=== PATIENT | female | born 1965 | race Caucasian/White ===

== ENCOUNTER → 2016-04-12 | Outpatient (CLI) | payer OTHER ==
[~2016-04-12] MED LIST: ATIVAN0.5 MG PO; CIPRO500 MG PO; CREON DR 12,001 EAC1 PO; ESTRACE42.5 GM TP; ESTRACE42.5 GM VG; ESTRADIOL0.5 MG PO; FIORICET,ESG1 TABLET PO; IMODIUM MS REL1 EACH PO; KLOR-CON M2020 MEQ PO; LOMOTIL TABLET1 EACH PO; LOPRESSOR25 MG PO; MAGIC MOUTHWASH1 ML MM; METOPROLOL TART25 MG PO; NORCO 5/3251 TABLET PO; OXAYDO5 MG PO; OXYCODONE HCL10 MG PO; PANTOPRAZOLE SO40 MG PO; PERCOCET 5/31 TABLET PO; PRILOSEC20 MG PO; PROGESTERONE CREAM TP; PROGESTERONE100 MG PO; PROMETHAZINE HC25 M1 PO; REGLAN10 MG PO; XELODA500 MG PO; ZOFRAN4 MG PO; ZOFRAN8 MG PO
== END | disposition home or self-care (01) ==
LOC: RAD 07:48 → EDSTATUS 08:15 → RAD 08:15
PROC: 0W9G3ZZ Drainage of Peritoneal Cavity, Percutaneous Approach (ICD-10-PCS; principal; 2016-04-12)
DX: R18.0 Malignant ascites (principal); C16.9 Malignant neoplasm of stomach, unspecified

== ENCOUNTER → 2016-04-14 | Outpatient (CLI) | payer OTHER ==
[~2016-04-14] VITALS: Ht 149.9 cm; Wt 46.4 kg
== END | disposition home or self-care (01) ==
LOC: RAD 15:54 → EDSTATUS 16:00 → RAD 16:00
PROC: 0W9B3ZZ Drainage of Left Pleural Cavity, Percutaneous Approach (ICD-10-PCS; principal; 2016-04-14)
DX: J90 Pleural effusion, not elsewhere classified (principal)
CPT/HCPCS: 88108; 88305

== ENCOUNTER → 2016-05-01 | Outpatient (CLI) | payer OTHER | END | disposition home or self-care (01) | LOC: RAD 08:35 → EDSTATUS 09:00 → RAD 09:00 | PROC: 0W9B3ZZ Drainage of Left Pleural Cavity, Percutaneous Approach (ICD-10-PCS; principal; 2016-05-01) | DX: J90 Pleural effusion, not elsewhere classified (principal); C16.9 Malignant neoplasm of stomach, unspecified; R18.0 Malignant ascites ==

== ENCOUNTER 2016-05-08 17:05 | Emergency (ER) | payer OTHER ==
[~2016-05-08] VITALS: Ht 149.9 cm; Wt 46.3 kg
[2016-05-08 18:40] LABS: HEMATOCRIT 34.1 % (36.0-46.0); MCH 31.4 PG (29.0-34.0); MCHC 31.1 G/DL (30.0-36.0); MCV 100.9 FL (83-99); MEAN PLAT.VOLUME 9.8 uM^3 (9.5-12.4); RBC DIS.WIDTH-CV 13.9 % (11.8-14.6); RBC DIS.WIDTH-SD 49.8 % (39-53); RED BLOOD COUNT 3.38 M/uL (3.80-5.20)
[2016-05-08 18:42] LABS: PLATELET COUNT 322 K/uL (156-360); WHITE BLOOD COUNT 8.2 K/uL (4.1-10.2)
[2016-05-08 18:51] LABS: CHLORIDE 109 mEq/L (99-109); POTASSIUM 4.1 mEq/L (3.7-5.4); SODIUM 145 mEq/L (136-147)
[2016-05-08 18:54] LABS: GLUCOSE 82 mg/dL (70-99)
[2016-05-08 18:55] LABS: ANION GAP 11 MEQ/L (2-14)
[2016-05-08 18:57] LABS: ALKALINE PHOSPHATASE 139 IU/L (3-129); GFR ESTIMATE (CALCULATED) > 59 mL/min/
[2016-05-08 18:58] LABS: UREA NITROGEN (BUN) 25 mg/dL (9-23)
[2016-05-08 19:13] LABS: PROTHROMBIN TIME 10.5 (9.2-11.2); PTT 25.9 (25-32)
[2016-05-08 19:16] LABS: TOTAL BILIRUBIN 0.4 mg/dL (0.0-1.0)
[2016-05-08 21:24] VITALS: BP 102/61
== END 2016-05-08 21:26 | disposition home or self-care (01) ==
LOC: EME 17:05
PROVIDERS: Physician Assistant
DX: J90 Pleural effusion, not elsewhere classified (principal); R18.0 Malignant ascites; C16.9 Malignant neoplasm of stomach, unspecified; I10 Essential (primary) hypertension
CPT/HCPCS: 71020; 76705; 80053; 85027; 85610; 85730; 99281; 99284

== ENCOUNTER → 2016-05-10 | Outpatient (CLI) | payer OTHER | END | disposition home or self-care (01) | LOC: RAD 05-03 13:30 → EDSTATUS 13:30 → RAD 13:30 | DX: R18.8 Other ascites (principal); J90 Pleural effusion, not elsewhere classified; C16.9 Malignant neoplasm of stomach, unspecified ==

== ENCOUNTER → 2016-05-18 | Outpatient (CLI) | payer OTHER ==
[~2016-05-18] MED LIST changes: +PROBIOTIC1 EAC1 PO; +TUMS500 MG PO
== END | disposition home or self-care (01) ==
LOC: OPR 12:49 → EDSTATUS 13:00 → RAD 14:00 → OPR 14:00
PROC: 0W9B3ZZ Drainage of Left Pleural Cavity, Percutaneous Approach (ICD-10-PCS; principal; 2016-05-18)
PROC: 02HV33Z Insertion of Infusion Device into Superior Vena Cava, Percutaneous Approach (ICD-10-PCS; 2016-05-18)
DX: J90 Pleural effusion, not elsewhere classified (principal)
CPT/HCPCS: 71010; C1729; J3010

== ENCOUNTER → 2016-05-24 | Outpatient (CLI) | payer OTHER | END | disposition home or self-care (01) | LOC: RAD 05-12 08:15 | PROC: BD47ZZZ Ultrasonography of Gastrointestinal Tract (ICD-10-PCS; principal; 2016-05-24) | DX: R18.8 Other ascites (principal); C16.9 Malignant neoplasm of stomach, unspecified; Z53.09 Procedure and treatment not carried out because of other contraindication | CPT/HCPCS: 76705 ==

== ENCOUNTER → 2016-05-30 | Outpatient (CLI) | payer OTHER | END | disposition home or self-care (01) | LOC: RAD 07:49 | PROC: 0W9G3ZZ Drainage of Peritoneal Cavity, Percutaneous Approach (ICD-10-PCS; principal; 2016-05-30) | DX: R18.8 Other ascites (principal) ==

== ENCOUNTER 2016-06-04 15:30 | Observation (INO) | payer OTHER ==
[~2016-06-04] VITALS: Ht 147.3 cm; Wt 46.4 kg
[2016-06-04 17:18] LABS: ADD MIUA? YES; BILIRUBIN NEGATIVE; BLOOD NEGATIVE; COLOR YELLOW ((YELLOW)); GLUCOSE (STRIP) NEGATIVE; KETONES 5; LEUKOCYTES TRACE; NITRITE NEGATIVE; PROTEIN (STRIP) NEGATIVE; SPECIFIC GRAVITY 1.021 (1.000-1.030); UROBILINOGEN 0.2 MG/DL (0.2-1.0)
[2016-06-04 17:50] LABS: INFLUENZA A VIRAL ANTIGEN NEGATIVE; INFLUENZA B VIRAL ANTIGEN NEGATIVE
[2016-06-04 17:52] LABS: BACTERIA NONE SEEN /HPF; CALCIUM OXALATE CRYSTALS 4+ /HPF; EPITHELIAL CELLS RARE /HPF; HYALINE CASTS 0-5 /LPF; MUCUS 2+ /LPF
[2016-06-04 18:31] LABS: HEMATOCRIT 32.4 % (36.0-46.0); MCH 30.4 PG (29.0-34.0); MCHC 31.8 G/DL (30.0-36.0); MEAN PLAT.VOLUME 9.5 uM^3 (9.5-12.4); PLATELET COUNT 277 K/uL (156-360); RBC DIS.WIDTH-CV 12.4 % (11.8-14.6); RBC DIS.WIDTH-SD 41.7 % (39-53); RED BLOOD COUNT 3.39 M/uL (3.80-5.20); WHITE BLOOD COUNT 8.7 K/uL (4.1-10.2)
[2016-06-04 18:33] LABS: D-DIMER ELISA 1.88 mg/L FEU (< 0.57)
[2016-06-04 18:39] LABS: CHLORIDE 106 mEq/L (99-109); POTASSIUM 4.1 mEq/L (3.7-5.4); SODIUM 139 mEq/L (136-147)
[2016-06-04 18:42] LABS: GLUCOSE 296 mg/dL (70-99)
[2016-06-04 18:43] LABS: ANION GAP 9 MEQ/L (2-14)
[2016-06-04 18:44] LABS: TOTAL BILIRUBIN 0.1 mg/dL (0.0-1.0)
[2016-06-04 18:45] LABS: ALKALINE PHOSPHATASE 295 IU/L (3-129); GFR ESTIMATE (CALCULATED) > 59 mL/min/
[2016-06-04 18:46] LABS: MCV 95.6 FL (83-99); UREA NITROGEN (BUN) 22 mg/dL (9-23)
[2016-06-04 19:54] LABS: TROP-I INTERPRETATION NEGATIVE; TROPONIN-I < 0.01 ng/mL (0.0-0.30)
[2016-06-04] MEDS ORDERED: ROXICODONE5 MG PO (21:43)
[2016-06-04] MEDS ORDERED: EMERGEN-C 1,01000 MG PO (21:44)
[2016-06-05 02:24] VITALS: BP 123/77
[2016-06-05 07:34] LABS: TROP-I INTERPRETATION NEGATIVE; TROPONIN-I < 0.01 ng/mL (0.0-0.30)
[2016-06-05 14:05] VITALS: BP 111/21
[2016-06-05 17:05] VITALS: BP 111/71
[2016-06-05 17:20] VITALS: BP 126/88
[2016-06-05 17:44] LABS: TROP-I INTERPRETATION NEGATIVE; TROPONIN-I < 0.01 ng/mL (0.0-0.30)
[2016-06-05 19:48] VITALS: BP 101/73
[2016-06-05 22:37] LABS: ADD MIUA? YES; BILIRUBIN NEGATIVE; BLOOD SMALL; COLOR YELLOW ((YELLOW)); GLUCOSE (STRIP) NEGATIVE; KETONES NEGATIVE; LEUKOCYTES SMALL; NITRITE NEGATIVE; PROTEIN (STRIP) NEGATIVE; SPECIFIC GRAVITY 1.023 (1.000-1.030); UROBILINOGEN 0.2 MG/DL (0.2-1.0)
[2016-06-05 22:47] LABS: BACTERIA RARE /HPF; EPITHELIAL CELLS 1+ /HPF; MUCUS 2+ /LPF; RED BLOOD CELLS 30-40 /HPF (0-5); UCUL ADDED? NO; WHITE BLOOD CELLS 20-30 /HPF (0-5)
[2016-06-05 23:41] VITALS: BP 96/57
[2016-06-06 04:32] VITALS: BP 103/69
[2016-06-06 06:52] LABS: HEMATOCRIT 30.7 % (36.0-46.0); MCH 30.3 PG (29.0-34.0); MCHC 31.6 G/DL (30.0-36.0); MCV 95.9 FL (83-99); MEAN PLAT.VOLUME 9.6 uM^3 (9.5-12.4); PLATELET COUNT 254 K/uL (156-360); RBC DIS.WIDTH-CV 12.7 % (11.8-14.6); RBC DIS.WIDTH-SD 44.6 % (39-53); WHITE BLOOD COUNT 6.9 K/uL (4.1-10.2)
[2016-06-06 07:18] LABS: ANION GAP 7 MEQ/L (2-14); CHLORIDE 106 MEQ/L (99-109); GFR ESTIMATE (CALCULATED) > 59 mL/min/; SAMPLE HEMOLYSIS CHECK 0; SAMPLE ICTERIC CHECK 0; SAMPLE LIPEMIA CHECK 0; SODIUM 142 MEQ/L (136-147); UREA NITROGEN (BUN) 22 mg/dL (9-23)
[2016-06-06 07:22] LABS: GLUCOSE 82 mg/dL (70-99)
[2016-06-06 07:42] VITALS: BP 116/74
[2016-06-06 11:21] VITALS: BP 114/72
[2016-06-06 15:51] VITALS: BP 109/76
[2016-06-06] MEDS ORDERED: VENTOLIN HFA18 GM IH (17:24)
== END 2016-06-06 18:43 | disposition home or self-care (01) ==
LOC: EME 15:30 → EDOF 06-05 00:25 → 5SOUTH 06-05 00:25
PROVIDERS: Hospitalist; Nurse Practitioner Family
DX: C16.9 Malignant neoplasm of stomach, unspecified (principal); J91.0 Malignant pleural effusion; C79.9 Secondary malignant neoplasm of unspecified site; M54.5 Low back pain
CPT/HCPCS: 71010; 71020; 71275; 72158; 74177; 76604; 76700; 80048; 80053; 81003; 83880; 84484; 85027; 85379; 87502; 93005; 93306; 94640; 94799; 99202; 99281; 99285; G0378; J1644; J7512

== ENCOUNTER 2016-06-11 15:53 | Inpatient (IN) | payer OTHER ==
[~2016-06-11] VITALS: Ht 147.3 cm; Wt 44.4 kg
[~2016-06-11 15:53] MED LIST changes: +EMERGEN-C 1,01000 MG PO; +ROXICODONE5 MG PO; +VENTOLIN HFA18 GM IH
[2016-06-11 17:05] LABS: CARBON DIOXIDE (BICARBONATE) 31.9 MEQ/L (20-31)
[2016-06-11 17:07] LABS: HEMATOCRIT 35.4 % (36.0-46.0); MCH 29.3 PG (29.0-34.0); MCHC 31.4 G/DL (30.0-36.0); MCV 93.4 FL (83-99); MEAN PLAT.VOLUME 9.7 uM^3 (9.5-12.4); PLATELET COUNT 294 K/uL (156-360); RBC DIS.WIDTH-CV 12.7 % (11.8-14.6); RBC DIS.WIDTH-SD 41.7 % (39-53); RED BLOOD COUNT 3.79 M/uL (3.80-5.20); WHITE BLOOD COUNT 11.4 K/uL (4.1-10.2)
[2016-06-11 17:16] LABS: CHLORIDE 101 mEq/L (99-109); POTASSIUM 4.4 mEq/L (3.7-5.4)
[2016-06-11 17:17] LABS: SODIUM 137 mEq/L (136-147)
[2016-06-11 17:18] LABS: GLUCOSE 121 mg/dL (70-99)
[2016-06-11 17:18] LABS: D-DIMER ELISA 2.19 mg/L FEU (< 0.57)
[2016-06-11 17:20] LABS: ANION GAP 10 MEQ/L (2-14)
[2016-06-11 17:22] LABS: GFR ESTIMATE (CALCULATED) > 59 mL/min/; TROP-I INTERPRETATION NEGATIVE; TROPONIN-I < 0.01 ng/mL (0.0-0.30)
[2016-06-11 17:23] LABS: UREA NITROGEN (BUN) 28 mg/dL (9-23)
[2016-06-12] VITALS (7 sets, daily range): BP systolic 94–115; BP diastolic 55–66
[2016-06-12 07:48] LABS: INFLUENZA A VIRAL ANTIGEN NEGATIVE; INFLUENZA B VIRAL ANTIGEN NEGATIVE
[2016-06-12 08:30] LABS: MCH 28.4 PG (29.0-34.0); MCHC 30.3 G/DL (30.0-36.0); MCV 93.7 FL (83-99); MEAN PLAT.VOLUME 9.8 uM^3 (9.5-12.4); PLATELET COUNT 268 K/uL (156-360); RBC DIS.WIDTH-CV 13.1 % (11.8-14.6); RBC DIS.WIDTH-SD 45.6 % (39-53); RED BLOOD COUNT 3.31 M/uL (3.80-5.20); WHITE BLOOD COUNT 8.3 K/uL (4.1-10.2)
[2016-06-12 09:15] LABS: ANION GAP 8 MEQ/L (2-14); CHLORIDE 104 MEQ/L (99-109); GFR ESTIMATE (CALCULATED) > 59 mL/min/; POTASSIUM 4.4 MEQ/L (3.7-5.4); SAMPLE HEMOLYSIS CHECK 0; SAMPLE ICTERIC CHECK 0; SAMPLE LIPEMIA CHECK 0; SODIUM 138 MEQ/L (136-147); UREA NITROGEN (BUN) 22 mg/dL (9-23)
[2016-06-12 09:36] LABS: GLUCOSE 85 mg/dL (70-99)
[2016-06-12 18:46] LABS: BILIRUBIN NEGATIVE; BLOOD NEGATIVE; COLOR YELLOW ((YELLOW)); GLUCOSE (STRIP) NEGATIVE; KETONES 5; LEUKOCYTES NEGATIVE; NITRITE NEGATIVE; PROTEIN (STRIP) NEGATIVE; SPECIFIC GRAVITY 1.028 (1.000-1.030); UROBILINOGEN 0.2 MG/DL (0.2-1.0)
[2016-06-12 18:52] LABS: ADD MIUA? NO; UCUL ADDED? NO
[2016-06-13] VITALS (8 sets, daily range): BP systolic 99–115; BP diastolic 55–74
[2016-06-13 02:43] LABS: TYPE OF FLUID PLEURAL
[2016-06-13 02:45] LABS: HEMATOCRIT 33.8 % (36.0-46.0); MCH 29.5 PG (29.0-34.0); MCHC 31.4 G/DL (30.0-36.0); MCV 94.2 FL (83-99); RBC DIS.WIDTH-CV 12.7 % (11.8-14.6); RED BLOOD COUNT 3.59 M/uL (3.80-5.20); WHITE BLOOD COUNT 8.8 K/uL (4.1-10.2)
[2016-06-13 02:48] LABS: PLATELET COUNT 362 K/uL (156-360)
[2016-06-13 03:02] LABS: CHLORIDE 105 mEq/L (99-109); POTASSIUM 3.9 mEq/L (3.7-5.4); SODIUM 139 mEq/L (136-147)
[2016-06-13 03:03] LABS: MAGNESIUM 1.7 mg/dL (1.3-2.7)
[2016-06-13 03:06] LABS: ANION GAP 9 MEQ/L (2-14)
[2016-06-13 03:08] LABS: GFR ESTIMATE (CALCULATED) > 59 mL/min/
[2016-06-13 03:09] LABS: UREA NITROGEN (BUN) 18 mg/dL (9-23)
[2016-06-13 03:12] LABS: GLUCOSE 144 mg/dL (70-99)
[2016-06-13 03:14] LABS: BODY FLUID RBC'S 16000 /MM^3 (0-100); BODY FLUID WBC'S 580 /MM^3 (0-500)
[2016-06-13 03:43] LABS: BODY FLUID EOSINOPHILS 0 % (0-25); MONO RAW COUNT 78; MONONUCLEAR WBC'S 78 %; POLY RAW COUNT 22; POLYNUCLEAR WBC'S 22 % (0-25)
[2016-06-13 03:47] LABS: BODY FLUID LDH 437 IU/L; BODY FLUID PROTEIN 3.2 G/DL
[2016-06-13 10:27] LABS: INTER. NORMALIZED RATIO 1.1; PROTHROMBIN TIME 11.2 (9.2-11.2); PTT 34.3 (25-32)
[2016-06-14 03:55] VITALS: BP 123/65
[2016-06-14 07:53] VITALS: BP 99/67
[2016-06-14 11:28] VITALS: BP 94/63
[2016-06-14 16:30] VITALS: BP 112/67
[2016-06-14 20:00] VITALS: BP 107/62
[2016-06-14 23:43] VITALS: BP 107/65
[2016-06-15 04:00] VITALS: BP 114/77
[2016-06-15 08:00] VITALS: BP 103/73
[2016-06-15 13:36] VITALS: BP 106/64
[2016-06-15 16:00] VITALS: BP 109/69
[2016-06-15 19:30] VITALS: BP 134/68
[2016-06-15 23:47] VITALS: BP 109/66
[2016-06-16 04:15] VITALS: BP 109/65
[2016-06-16 07:00] VITALS: BP 121/79
[2016-06-16 08:45] LABS: HEMATOCRIT 32.4 % (36.0-46.0); MCH 28.9 PG (29.0-34.0); MCHC 30.9 G/DL (30.0-36.0); MCV 93.6 FL (83-99); MEAN PLAT.VOLUME 10.1 uM^3 (9.5-12.4); PLATELET COUNT 313 K/uL (156-360); RBC DIS.WIDTH-CV 12.9 % (11.8-14.6); RBC DIS.WIDTH-SD 43.8 % (39-53); RED BLOOD COUNT 3.46 M/uL (3.80-5.20); WHITE BLOOD COUNT 9.5 K/uL (4.1-10.2)
[2016-06-16 09:44] LABS: ALKALINE PHOSPHATASE 372 IU/L (3-129); ANION GAP 11 MEQ/L (2-14); CHLORIDE 101 MEQ/L (99-109); GFR ESTIMATE (CALCULATED) > 59 mL/min/; GLUCOSE 85 mg/dL (70-99); POTASSIUM 4.5 MEQ/L (3.7-5.4); SAMPLE HEMOLYSIS CHECK 0; SAMPLE ICTERIC CHECK 0; SAMPLE LIPEMIA CHECK 0; SODIUM 139 MEQ/L (136-147); TOTAL BILIRUBIN 0.4 MG/DL (0.0-1.0); UREA NITROGEN (BUN) 24 mg/dL (9-23)
[2016-06-16 11:13] LABS: INTER. NORMALIZED RATIO 1.1; PROTHROMBIN TIME 11.4 (9.2-11.2); PTT 31.8 (25-32)
[2016-06-16 12:10] VITALS: BP 103/71
[2016-06-16 16:15] VITALS: BP 108/69
[2016-06-16 19:10] VITALS: BP 101/60
[2016-06-16 22:58] VITALS: BP 105/69
[2016-06-17 03:10] VITALS: BP 103/69
[2016-06-17 07:50] VITALS: BP 108/77
[2016-06-17 12:00] VITALS: BP 109/72
[2016-06-17] MEDS ORDERED: BISACODYL5 MG PO (15:41)
[2016-06-17] MEDS ORDERED: MORPHINE S10 MG/5 ML PO (15:41)
[2016-06-17] MEDS ORDERED: DOCUSATE SODIU100 MG PO (15:41)
[2016-06-17 16:59] VITALS: BP 123/78
[2016-06-17] MEDS ORDERED: MS CONTIN,ORAMO15 M1 PO (18:38)
== END 2016-06-17 19:45 | disposition home health service (06) | DRG 374 ==
LOC: EME 15:53 → EDOF 21:42 → 2EASTP 21:42
PROVIDERS: Emergency Medicine; Hospitalist; Internal Medicine; Internal Medicine Pulmonary Disease; Radiology Diagnostic Radiology
PROC: 0W9930Z Drainage of Right Pleural Cavity with Drainage Device, Percutaneous Approach (ICD-10-PCS; principal; 2016-06-13)
DX: C16.9 Malignant neoplasm of stomach, unspecified (principal); J96.01 Acute respiratory failure with hypoxia; J91.0 Malignant pleural effusion; R18.0 Malignant ascites; J98.11 Atelectasis; J18.9 Pneumonia, unspecified organism
CPT/HCPCS: 71010; 71020; 71275; 76705; 80048; 80053; 80202; 81003; 82803; 82945; 83605; 83615; 83615 91; 83735; 83880; 84145 90; 84155; 84157; 84484; 85027; 85379; 85610; 85730; 87040; 87070; 87075; 87116; 87205; 87206; 87502; 88108; 88305; 89051; 92610 GN; 93005; 94010; 94640; 94640 76; 94799; 99202; 99281; 99285; J0696; J1644; J1956; J2270; J2405; J2997; J3010; J3370; J7030; J7050

== ENCOUNTER → 2016-06-27 | Outpatient (CLI) | payer OTHER ==
[~2016-06-27] MED LIST changes: +BISACODYL5 MG PO; +DAILY VITE1 EAC1 PO; +DOCUSATE SODIU100 MG PO; +MORPHINE S10 MG/5 ML PO; +MS CONTIN,ORAMO15 M1 PO
== END | disposition home or self-care (01) ==
LOC: RAD 06-20 08:15
PROC: 0W9G3ZZ Drainage of Peritoneal Cavity, Percutaneous Approach (ICD-10-PCS; principal; 2016-06-27)
DX: R18.8 Other ascites (principal); C16.9 Malignant neoplasm of stomach, unspecified

== ENCOUNTER 2016-06-30 01:19 | Inpatient (IN) | payer OTHER ==
[~2016-06-30] VITALS: Ht 147.3 cm; Wt 40.4 kg
[~2016-06-30 01:19] MED LIST changes: -DAILY VITE1 EAC1 PO
[2016-06-30 02:11] LABS: BASOPHIL COUNT 0.1 K/uL (0-0.1); EOSINOPHIL (%) 1.6 % (0-5); EOSINOPHIL COUNT 0.2 K/uL (0-0.3); HEMATOCRIT 33.6 % (36.0-46.0); IMMATURE GRANULOCYTE (%) 0.8 % (0.0-0.7); IMMATURE GRANULOCYTE COUNT 0.1 K/uL; INSTRUMENT ABS NEUTROPHIL CT 10.4 K/uL; LYMPHOCYTE COUNT 0.5 K/uL (1.0-2.8); MCH 27.4 PG (29.0-34.0); MEAN PLAT.VOLUME 9.8 uM^3 (9.5-12.4); MONOCYTE (%) 7.8 % (3-12); MONOCYTE COUNT 0.9 K/uL (0-0.8); NEUTROPHIL (%) 85.4 % (45-76); NEUTROPHIL COUNT 10.4 K/uL (1.8-6.4); PLATELET COUNT 305 K/uL (156-360); RBC DIS.WIDTH-CV 13.2 % (11.8-14.6); RBC DIS.WIDTH-SD 42.7 % (39-53); RED BLOOD COUNT 3.79 M/uL (3.80-5.20); WHITE BLOOD COUNT 12.1 K/uL (4.1-10.2)
[2016-06-30 02:12] LABS: MCV 88.7 FL (83-99)
[2016-06-30 02:16] LABS: CARBON DIOXIDE (BICARBONATE) 31.5 MEQ/L (20-31)
[2016-06-30 02:18] LABS: CHLORIDE 99 mEq/L (99-109); POTASSIUM 3.8 mEq/L (3.7-5.4); SODIUM 136 mEq/L (136-147)
[2016-06-30 02:21] LABS: GLUCOSE 106 mg/dL (70-99)
[2016-06-30 02:22] LABS: ANION GAP 12 MEQ/L (2-14)
[2016-06-30 02:23] LABS: TOTAL BILIRUBIN 0.5 mg/dL (0.0-1.0)
[2016-06-30 02:24] LABS: ALKALINE PHOSPHATASE 299 IU/L (3-129); GFR ESTIMATE (CALCULATED) > 59 mL/min/
[2016-06-30 02:25] LABS: UREA NITROGEN (BUN) 19 mg/dL (9-23)
[2016-06-30 02:28] LABS: LIPASE 16 U/L (1.0-51.0)
[2016-06-30 02:30] LABS: D-DIMER ELISA > 4.00 mg/L FEU (< 0.57); TROP-I INTERPRETATION NEGATIVE; TROPONIN-I < 0.01 ng/mL (0.0-0.30)
[2016-06-30 07:40] VITALS: BP 125/82
[2016-06-30] MEDS ORDERED: MORPHINE S10 MG/5 ML PO (08:20)
[2016-06-30 12:07] VITALS: BP 116/75
[2016-06-30] MEDS ORDERED: EMERGEN-C 1,01000 MG PO (13:34)
[2016-06-30] MEDS ORDERED: TUMS500 MG PO (13:35)
[2016-06-30] MEDS ORDERED: DAILY VITE1 EAC1 PO (13:35)
[2016-06-30 15:53] VITALS: BP 121/76
[2016-06-30 19:53] VITALS: BP 114/77
[2016-06-30 23:05] VITALS: BP 109/68
[2016-07-01 03:28] VITALS: BP 109/73
[2016-07-01 07:28] VITALS: BP 110/65
[2016-07-01 07:28] LABS: ANION GAP 4 MEQ/L (2-14); CHLORIDE 101 MEQ/L (99-109); GFR ESTIMATE (CALCULATED) > 59 mL/min/; GLUCOSE 85 mg/dL (70-99); POTASSIUM 4.2 MEQ/L (3.7-5.4); SAMPLE HEMOLYSIS CHECK 0; SAMPLE ICTERIC CHECK 0; SAMPLE LIPEMIA CHECK 0; SODIUM 140 MEQ/L (136-147); UREA NITROGEN (BUN) 16 mg/dL (9-23)
[2016-07-01 08:40] LABS: INTERNAL CONTROL VALID? YES
[2016-07-01 11:44] VITALS: BP 106/64
[2016-07-01 16:11] VITALS: BP 101/66
[2016-07-01 20:00] VITALS: BP 109/69
[2016-07-01 23:38] VITALS: BP 117/76
[2016-07-02 03:44] VITALS: BP 106/67
[2016-07-02 07:30] VITALS: BP 115/77
[2016-07-02 07:59] LABS: HEMATOCRIT 31.8 % (36.0-46.0); MCH 27.1 PG (29.0-34.0); MCHC 29.9 G/DL (30.0-36.0); MCV 90.6 FL (83-99); RBC DIS.WIDTH-CV 13.2 % (11.8-14.6); RBC DIS.WIDTH-SD 43.6 % (39-53); RED BLOOD COUNT 3.51 M/uL (3.80-5.20); WHITE BLOOD COUNT 11.9 K/uL (4.1-10.2)
[2016-07-02 08:13] LABS: ANION GAP 5 MEQ/L (2-14); CHLORIDE 102 MEQ/L (99-109); GFR ESTIMATE (CALCULATED) > 59 mL/min/; GLUCOSE 89 mg/dL (70-99); POTASSIUM 4.1 MEQ/L (3.7-5.4); SAMPLE HEMOLYSIS CHECK 0; SAMPLE ICTERIC CHECK 0; SAMPLE LIPEMIA CHECK 0; SODIUM 139 MEQ/L (136-147); UREA NITROGEN (BUN) 19 mg/dL (9-23)
[2016-07-02 08:46] LABS: PLATELET COUNT UNABLE TO REPORT K/uL (156-360)
[2016-07-02 09:46] LABS: BASE EXCESS 5.1 mEq/L (-3 to +3); BICARBONATE 31.6 mEq/L (22-26); CARBOXY HGB 0.8 % (0-5); COMMENTS - BLOOD GASES A+C+; DEVICE NC; METHEMOGLOBIN 1.1 % (0-1.5); O2 FLOW 6 L/MIN; PCO2 56 mm Hg (35-45); PO2 70 mm Hg (80-100); SITE RR; TOTAL RESP RATE 26 resp/min; pH 7.36 (7.35-7.45)
[2016-07-02 12:35] VITALS: BP 134/83
[2016-07-02 16:34] VITALS: BP 114/73
[2016-07-02 19:44] VITALS: BP 123/76
[2016-07-02 23:12] VITALS: BP 119/64
[2016-07-03 03:38] VITALS: BP 106/69
[2016-07-03 08:00] VITALS: BP 124/83
[2016-07-03 16:00] VITALS: BP 109/74
[2016-07-03 19:40] VITALS: BP 118/73
[2016-07-04 04:13] VITALS: BP 122/80
[2016-07-05 02:01] VITALS: BP 122/80
== END 2016-07-08 07:25 | DRG 189 ==
LOC: EME 01:19 → EDOF 05:34 → 2EASTP 05:34 → 2EAST 07-04 12:34
PROVIDERS: Emergency Medicine; Family Medicine; Internal Medicine
DX: J96.21 Acute and chronic respiratory failure with hypoxia (principal); J91.0 Malignant pleural effusion; C16.9 Malignant neoplasm of stomach, unspecified; J81.0 Acute pulmonary edema; J98.11 Atelectasis; R18.0 Malignant ascites; R18.8 Other ascites; I10 Essential (primary) hypertension; E83.51 Hypocalcemia; D64.9 Anemia, unspecified; Z51.5 Encounter for palliative care; Z66 Do not resuscitate; R00.0 Tachycardia, unspecified
CPT/HCPCS: 36600; 71010; 71275; 76604; 80048; 80053; 80202; 82803; 83605; 83690; 83880; 84484; 85025; 85027; 85379; 87040; 87449; 93005; 94640; 94640 76; 94760; 94799; 99202; 99281; 99285; J0692; J1644; J1940; J2060; J2270; J2405; J3370; J7050